=== PATIENT | male | born 1940 | race Two or more races ===

== ENCOUNTER 2017-09-26 14:11 | Outpatient (CLI) | payer OTHER | END 2017-09-26 14:15 | disposition home or self-care (01) | LOC: RAD 14:11 | DX: M54.2 Cervicalgia (principal) ==

== ENCOUNTER → 2020-05-18 10:04 | Outpatient (CLI) | payer OTHER | END | disposition home or self-care (01) | LOC: NUCLEAR 10:00 | PROVIDERS: ATTEND Internal Medicine | DX: G45.8 Other transient cerebral ischemic attacks and related syndromes (principal); Z95.1 Presence of aortocoronary bypass graft; I25.10 Atherosclerotic heart disease of native coronary artery without angina pectoris ==

== ENCOUNTER 2021-01-03 12:54 | Outpatient (CLI) | payer OTHER | END 2021-01-03 13:02 | disposition home or self-care (01) | LOC: SONOGRAMA 12:54 → MAMO-SONO 13:15 | PROVIDERS: ATTEND Internal Medicine | DX: N18.31 Chronic kidney disease, stage 3a (principal) ==

== ENCOUNTER → 2021-07-06 14:38 | Outpatient (CLI) | payer OTHER | END | disposition home or self-care (01) | LOC: LAB 14:38 | PROVIDERS: ATTEND Radiology Diagnostic Radiology | DX: R13.14 Dysphagia, pharyngoesophageal phase (principal) ==

== ENCOUNTER 2021-07-07 10:12 | Outpatient (CLI) | payer OTHER | END 2021-07-07 10:22 | disposition home or self-care (01) | LOC: TOM 10:12 | PROVIDERS: ATTEND Internal Medicine Gastroenterology | DX: N20.0 Calculus of kidney (principal); R13.14 Dysphagia, pharyngoesophageal phase; K22.2 Esophageal obstruction; I70.8 Atherosclerosis of other arteries ==